=== PATIENT | female | born 1980 | race Caucasian/White ===

== ENCOUNTER 2025-02-27 15:11 | Outpatient (REF) | payer OTHER, SELFPAY | END 2025-02-27 15:12 | disposition home or self-care (01) | LOC: HO.MAMMO 15:11 | PROVIDERS: PCP Registered Nurse; Visit Provider Registered Nurse | DX: Z12.31 Encounter for screening mammogram for malignant neoplasm of breast (principal) | CPT/HCPCS: 77063; 77067 ==

== ENCOUNTER → 2025-02-27 16:00 | Outpatient (BNV) | payer OTHER, SELFPAY | PROVIDERS: PCP Registered Nurse; Visit Provider Internal Medicine | DX: Z12.31 Encounter for screening mammogram for malignant neoplasm of breast (principal) | CPT/HCPCS: 77063; 77067 ==